=== PATIENT | male | born 1940 | race Caucasian/White ===

== ENCOUNTER → 2017-04-10 13:52 | Outpatient (CLI) | payer MEDICARE, OTHER ==
[2012-07-15 08:15] VITALS: BMI 27.3
== END | disposition home or self-care (01) ==
LOC: D.US 04-03 14:00
DX: I65.23 Occlusion and stenosis of bilateral carotid arteries (principal)

== ENCOUNTER 2017-10-28 18:20 | Emergency (ER) | payer MEDICARE, OTHER ==
[~2017-10-28] VITALS: Ht 177.8 cm; Wt 86.4 kg
[2017-10-28] MEDS ORDERED: BAYER CHEWABLE81 MG PO (19:08)
[2017-10-28] MEDS ORDERED: NAPROXEN250 MG PO (19:08)
== END 2017-10-28 23:24 | disposition home or self-care (01) ==
LOC: D.ER 18:20
DX: L76.32 Postprocedural hematoma of skin and subcutaneous tissue following other procedure (principal); E11.9 Type 2 diabetes mellitus without complications; I10 Essential (primary) hypertension; K21.9 Gastro-esophageal reflux disease without esophagitis; F17.200 Nicotine dependence, unspecified, uncomplicated

== ENCOUNTER → 2018-02-21 11:46 | Outpatient (CLI) | payer MEDICARE, OTHER ==
[2017-10-28 19:05] VITALS: BMI 27.3
[~2018-02-21 11:46] MED LIST: BAYER CHEWABLE81 MG PO; NAPROXEN250 MG PO
== END | disposition home or self-care (01) ==
LOC: D.CT 02-19 15:00
DX: I73.9 Peripheral vascular disease, unspecified (principal)

== ENCOUNTER → 2018-02-28 13:04 | Outpatient (CLI) | payer MEDICARE, OTHER ==
[2017-10-28 19:05] VITALS: BMI 27.3
== END | disposition home or self-care (01) ==
LOC: D.US 13:04
DX: I65.23 Occlusion and stenosis of bilateral carotid arteries (principal)

== ENCOUNTER → 2018-04-29 15:48 | Outpatient (CLI) | payer MEDICARE, OTHER ==
[2017-10-28 19:05] VITALS: BMI 27.3
== END | disposition home or self-care (01) ==
LOC: D.CT 15:48
DX: I65.23 Occlusion and stenosis of bilateral carotid arteries (principal)

== ENCOUNTER 2018-05-21 09:15 | Inpatient (IN) | payer MEDICARE, OTHER ==
[~2018-05-21] VITALS: Ht 177.8 cm; Wt 83.6 kg
[2018-05-21] MEDS ORDERED: LIPITOR20 MG PO (09:38)
[2018-05-21] MEDS ORDERED: ZYLOPRIM100 MG PO (09:38)
[2018-05-21] MEDS ORDERED: COREG CR20 MG PO (09:39)
[2018-05-21] MEDS ORDERED: BUPROPION HCL150 M1 PO (09:39)
[2018-05-21] MEDS ORDERED: CELEBREX200 MG PO (09:39)
[2018-05-21] MEDS ORDERED: LISINOPRIL40 MG PO (09:40)
[2018-05-21] MEDS ORDERED: PROTONIX40 MG PO (09:40)
[2018-05-21] MEDS ORDERED: SYNTHROID88 MCG PO (09:40)
[2018-05-21] MEDS ORDERED: CIALIS2.5 MG PO (09:40)
[2018-05-21] MEDS ORDERED: GLUCOPHAGE500 MG PO (09:40)
[2018-05-21] MEDS ORDERED: HYTRIN5 MG PO (09:41)
[2018-05-21] MEDS ORDERED: TRICOR145 MG PO (09:41)
[2018-05-21 11:16] LABS: BASOPHILS 1.2 % (0-2); EOSINOPHILS 3.8 % (0-7); HEMATOCRIT 39.2 % (42.0-54.0); HEMOGLOBIN 13.8 g/dL (13.5-17.5); IMMATURE GRANULOCYTES 0.2 % (0-5); MCH 32.5 pg (26.0-34.0); MCHC 35.2 g/dL (31.0-37.0); MCV 92.5 fL (80.0-100.0); MEAN PLATELET VOLUME 10.2 fL (7.4-10.4); MONOCYTES 7.2 % (2-11); NEUTROPHILS 51.6 % (40-80); PLATELET COUNT 233 10x3/uL (130-400); RBC 4.24 10x6/uL (4.20-6.10); RDW 13.2 % (11.5-14.5)
[2018-05-21 11:18] LABS: APPEARANCE CLEAR (CLEAR); BILIRUBIN NEGATIVE (NEGATIVE); COLOR YELLOW (YELLOW); GLUCOSE NEGATIVE (NEGATIVE); KETONE NEGATIVE (NEGATIVE); NITRITE NEGATIVE (NEGATIVE); PROTEIN 2+ mg/dL (NEGATIVE)
[2018-05-21 11:26] LABS: APTT 29.5 SECONDS (22.8-39.4); INR 1.03 (0.85-1.17)
[2018-05-21 11:31] LABS: ALBUMIN 3.6 g/dL (3.4-5.0); ANION GAP 14.5 mmol/L (8-16); BILIRUBIN - TOTAL 0.43 mg/dL (0.2-1.3); CALCIUM 9.1 mg/dL (8.5-10.1); CARBON DIOXIDE 26.6 mmol/L (21.0-32.0); CREATININE - SERUM 1.5 mg/dL (0.6-1.3); POTASSIUM - SERUM 4.1 mmol/L (3.5-5.1); PROTEIN - SERUM 7.5 g/dL (6.4-8.2)
[2018-05-23] VITALS (34 sets, daily range): BP systolic 99–158; BP diastolic 41–64; Ht 177.8 cm; Wt 83.6 kg
--- NOTE | 2018-05-23 16:15 | NUR ---
PT ARRIVED TO UNIT AROUND 1600. ON 12L OF O2 VIA SIMPLE MASK. OPENS EYES TO VOICE AND FOLLOWS SIMPLE COMMANDS. DRESSING NOTED ON RIGHT AND LEFT GROIN. NO HEMATOMA OR BRUISING NOTED AT SITE. RIGHT PEDAL PULSES PAPABLE. LEFT PEDAL PULSES ASSESSED WITH DOPPLER. HAS L-SUB CVL WITH PLASMOLYTE AT 150ML/HR PER ORDERS. RIGHT RADIAL JUHI SECURED WITH WRIST PROTECTOR. RUE WARM AND PINK. ECHEVERRIA IN PLACE WITH YELLOW URINE NOTED. SHIFT ASSESSMENT COMPLETED. WILL CONTINUE TO MONITOR.
--- NOTE | 2018-05-23 17:34 | NUR ---
SBP ELEVATED ABOVE 150. NITRO INITIATED AT 5ML/HR. DR. MORROW NOTIFIED OF CHANGE. WILL CONTINUE TO MONITOR.
--- NOTE | 2018-05-23 18:59 | NUR ---
PT RESTING COMFORTABLY. NITRO DRIP CURRENTLY INFUSING AT 7ML/HR. BP 115/49.
--- NOTE | 2018-05-23 20:14 | MORECARE ---
CASE MANAGEMENT DISCHARGE SUMMARY PATIENT: GLENDA NIELSEN UNIT: [id number] ADM DATE: 05/23/18 AGE: 77 : 42 SEX: M ROOM/BED: D.[facility] AUTHOR: PATRICK,DOC PHYSICIAN: REFERRING PHYSICIAN: HILDA MORROW MD DATE OF SERVICE: 05/23/18 Discharge Plan Patient Name: GLENDA NIELSEN Facility: [facility]:[place] : 1940 Planned Disposition: Home Anticipated Discharge Date: Discharge Date: Expected LOS: Initial Reviewer: [email or web address] Initial Review Date: 05/23/2018 Generated: 05/23/18 9:14 pm Comments DCP- Discharge Planning Updated by [email or web address]: Linda Neri on 05/23/18 7:[address] Patient Name: GLENDA NIELSEN Admission Status: Elective Accout number: [id number] Admission Date: 05-23-2018 : 1940 Admission Diagnosis: Attending: HILDA MORROW Current LOS: 1 Anticipated DC Date: Planned Disposition: Home Primary Insurance: MEDICARE A & B Discharge Planning Comments: CM met with patient at bedside after obtaining verbal consent. Patient states he plans on returning home after discharge with his . Patient states he will have family transport him home via private vehicle. Patient denies any discharge needs at this time. CM will continue to follow and assist as needed for discharge planning / needs. In Store Marketing Associate: Linda Neri DCPIA - Discharge Planning Initial Assessment Updated by [email or web address]: Linda Neri on 05/23/18 8:09 pm * Is the patient Alert and Oriented? Yes * How many steps to enter\exit or inside your home? * PCP PARROT * Pharmacy [facility] * Preadmission Environment Home with Family * ADLs Independent * Equipment None * List name and contact numbers for known caregivers / representatives who currently or will assist patient after discharge: HUMA NIELSEN - SPOUSE - [phone] * Verbal permission to speak to the caregivers and representatives has been obtained from the patient. N/A * Community resources currently utilized None * Additional services required to return to the preadmission environment? No * Can the patient safely return to the preadmission environment? Yes * Has this patient been hospitalized within the prior 30 days at any hospital? No Patient Name: GLENDA NIELSEN Page [id number] at 2013 All edits/amendments must be made on the electronic document DICTATION DATE: 05/23/182013 ELECTRICAL ACCESSORIES ASSEMBLER: YOSI 05/23/182013 RPT#: [id number] DC DATE: STATUS: ADM IN [facility] [address] [place] [address] END OF REPORT
--- NOTE | 2018-05-23 21:00 | NUR ---
1900 REPORT RECEIVED CARE ASSUMED. ASSESSMENT DONE SEE FLOW SHEET. VSS. NO SIGNS OF ACUTE DISTRESS NOTED WILL CONTINUE TO MONITOR. ICU MONITORS IN PLACE ALARMS SET AND VERIFIED. IS 1500. 2100 MEDS GIVEN PER MAR. NO DIFFICULTY SWALLOWING NOTED. COMPLETE BED BATH PROVIDED. LINEN CHANGE. ECHEVERRIA CARE. IS 1500. SCD APPLIED.
--- NOTE | 2018-05-23 23:00 | NUR ---
REASSESSMENT DONE SEE FLOW SHEET. VSS. WILL CONTINUE TO MONITOR.
[2018-05-24] VITALS (27 sets, daily range): BP systolic 95–162; BP diastolic 39–74
--- NOTE | 2018-05-24 03:00 | NUR ---
0100 WATER PROVIDED PER PT REQUEST. VSS. NO SIGNS OF ACUTE DISTRESS NOTED. 0300 REASSESSMENT DONE SEE FLOW SHEET. VSS. NO SINGS OF ACUTE DISTRESS NOTED. IS 1500.
--- NOTE | 2018-05-24 05:00 | NUR ---
DANGLED AND OOB TO CHAIR VSS. NO SIGNS OF ACUTE DISTRESS NOTED.
[2018-05-24 06:03] LABS: HEMOGLOBIN 10.8 g/dL (13.5-17.5); MCHC 34.8 g/dL (31.0-37.0); MEAN PLATELET VOLUME 10.7 fL (7.4-10.4); RBC 3.37 10x6/uL (4.20-6.10); RDW 13.1 % (11.5-14.5); WBC 7.7 10x3/uL (4.8-10.8)
[2018-05-24 06:32] LABS: ANION GAP 15.1 mmol/L (8-16); CARBON DIOXIDE 23.9 mmol/L (21.0-32.0); CREATININE - SERUM 1.5 mg/dL (0.6-1.3)
--- NOTE | 2018-05-24 07:00 | NUR ---
REC'D CARE OF PT. A&O X3. SITTING IN CHAIR. DENIES PAIN.
--- NOTE | 2018-05-24 07:47 | NUR ---
BREAKFAST TRAY SERVED.
--- NOTE | 2018-05-24 08:06 | NUR ---
INITIAL ASSESSMENT COMPLETED PER FLOW SHEET.
--- NOTE | 2018-05-24 09:00 | NUR ---
FAMILY AT BEDSIDE. UPDATED.
--- NOTE | 2018-05-24 10:19 | NUR ---
PULLS 1500 ON IS X6.
--- NOTE | 2018-05-24 11:12 | NUR ---
ECHEVERRIA CATH DC'D FROM BLADDER. RIGHT RADIAL JUHI DC'D WITH TIP INTACT. NO BLEEDING. NO HEMATOMA. IVF AND MORPHINE DC'D.
--- NOTE | 2018-05-24 11:30 | NUR ---
REASSESSMENT COMPLETED PER FLOW SHEET. NO ACUTE CHANGES.
--- NOTE | 2018-05-24 11:33 | NUR ---
AMBULATED 200 FEET AND BACK TO BED.
--- NOTE | 2018-05-24 12:29 | OP ---
PATIENT NAME: GLENDA NIELSEN MEDICAL RECORD: [id number] :44 LOCATION:[facility] ADMISSION DATE:05/23/18 SURGEON: KENNETH MORROW MD DATE OF OPERATION: 05/23/2018 SURGEON: Kenneth Morrow MD SCENIC ARTIST: Love. ANESTHESIA: General endotracheal, Dr. Guevara and Dr. Leyva. OPERATION PERFORMED: 1. Endovascular stent repair of aortoiliac disease. 2. Left femoral artery exposure, 16313. 3. Right percutaneous closure device right common femoral artery, 23746. 4. Endovascular stent repair and deployment of an aortoiliac endograft, 13652. PREOPERATIVE DIAGNOSIS: Severe aortoiliac disease. POSTOPERATIVE DIAGNOSIS: Severe aortoiliac disease. INDICATION FOR OPERATION: Severe aortoiliac disease with claudication. FINDINGS OF THE OPERATION: Fluoro time was 10 minutes. Contrast was 40 cc. Aortogram post-procedure demonstrates good expansion of the distal aorta and iliacs with no endoleaks, bilateral femoral arteriograms demonstrated severe disease at the aortoiliac junction. DESCRIPTION OF PROCEDURE: After informed consent, adequate preoperative medication evaluation, the patient was brought to the operating room, placed on the table in the supine position. After induction of general endotracheal anesthesia and application of appropriate monitoring devices, the chest, abdomen and legs were prepped and draped in sterile field, utilizing Betadine scrub, alcohol, and Betadine solution. A Betadine-impregnated drape was also used. Dr. Aleman participated throughout the procedure and assisted with opening and dissection of the vessels as well as wires, catheters, and sheaths manipulations in the iliacs and aorta. He also participated in closure of the left distal iliac artery. The patient underwent ultrasound guidance and placement of a 5-Sudanese sheath in the right groin. Attention was then turned toward the left and Dr. Aleman and myself dissected the common femoral and distal iliac arteries. Bilateral 7 sheaths were placed and wires were manipulated through the severe stenotic areas, both right proximal iliac and left proximal iliac. Bilateral retrograde arteriograms were performed delineating the disease. Bilateral 7-Sudanese x 40 cm balloons were placed and the iliac and aorta vessels dilated. We were therefore able to place the stent device through the left side after placement of a 19-Sudanese sheath. The contralateral wire was snared from the right and brought through the sheath. The main body was then advanced into the aorta and the limbs sat on the bifurcation. The main body was deployed followed by the contralateral side. A pigtail catheter was placed in the aorta and the left ipsilateral limb was deployed. Bilateral balloons were then placed over wires and the iliac limbs and aortic limb dilated. An aortogram was then performed demonstrated good flow through the distal aorta and bilateral iliac stents with OPERATIVE REPORT [id number] GLENDA NIELSEN no residual stenosis. The left external iliac artery was repaired and interrupted sutured. The patient was given a calculated dose of protamine. An 8-Sudanese Angio-Seal was then deployed in the right groin with good hemostasis. The patient was given a calculated dose of protamine to reverse the heparin. Hemostasis was assured. The left wound was irrigated with copious amounts of antibiotic solution and normal saline. Instrument count and sponge counts were correct times 2. The wound was closed in layers utilizing 2-0 Vicryl, 3-0 Vicryl, and 5-0 subcuticular Monocryl. Sterile dressings were applied. The patient tolerated the procedure well and was transferred to the CV ICU in satisfactory condition. TRANSINT:[id number] Voice Confirmation ID: [id number] DOCUMENT ID: [id number] KENNETH MORROW MD at 1229 CC: [id number] DICTATION DATE: 05/23/18 1536 CHAINSTITCH FELLED SEAM OPERATOR: 05/23/18 1643 ADM IN [facility] [id number] [place] [address]
--- NOTE | 2018-05-24 13:32 | NUR ---
REMAINS UP IN CHAIR. DENIES NEEDS. VSS.
--- NOTE | 2018-05-24 13:58 | NUR ---
PULLS 1500 ON IS.
--- NOTE | 2018-05-24 14:41 | NUR ---
AMBULATE 250 FEET AND BACK TO CHAIR ON RA WITHOUT DIFFICULTY WITH ROSIE PT
--- NOTE | 2018-05-24 14:59 | NUR ---
REASSESSMENT COMPLETED PER FLOW SHEET. NO ACUTE CHANGES.
--- NOTE | 2018-05-24 16:07 | NUR ---
BACK TO BED FROM CHAIR.
--- NOTE | 2018-05-24 16:29 | NUR ---
5697-9116 BP CUFF WAS ON BUT DID NOT TAKE BP.
--- NOTE | 2018-05-24 17:54 | NUR ---
RESTING WITH EYES CLOSED. VSS.
--- NOTE | 2018-05-24 20:29 | NUR ---
1900 REPORT RECEIVED CARE ASSUMED. ASSESSMENT DONE SEE FLOW SHEET. VSS. NO SIGNS OF ACUTE DISTRESS NOTED. WILL CONITNUE TO MONITOR. 2028 MEDS GIVEN PER JUN. VSS. WILL CONINTUE TO MONITOR.
--- NOTE | 2018-05-24 23:00 | NUR ---
REASSESSMENT DONE SEE FLOW SHEET. VSS. PT VERBALIZES NO COMPLAINTS.
[2018-05-25] VITALS (13 sets, daily range): BP systolic 108–167; BP diastolic 53–67
--- NOTE | 2018-05-25 02:59 | NUR ---
0100 WATER PROVIDED PER REQUEST. NO SIGNS OF ACUTE DISTRESS NOTED WILL CONTINUE TO MONITOR. 0295 REASSESSMENT DONE SEE FLOW VSS. WILL CONTINUE TO MONITOR.
--- NOTE | 2018-05-25 05:00 | NUR ---
PT UP TO CHAIR. NO DIFFICULTY NOTED. VERBALIZES NO COMPLAINTS. VSS.
--- NOTE | 2018-05-25 07:00 | NUR ---
AMBULATING INDEPENDENTLY TO BATHROOM. NO SHORTNESS OF BREATH DENIES PAIN. SKIN WARM AND DRY. LEFT SUBCLAVIAN CATH DRESSING DRY AND INTACT. LEFT GROIN DRESSING DRY AND INTACT. RIGHT GROIN WITHOUT REDNESS OR SWELLING.
--- NOTE | 2018-05-25 08:00 | NUR ---
BREAKFAST SERVED ATE POORLY. NO DISTRESS
--- NOTE | 2018-05-25 09:30 | NUR ---
AMBULATING TO BATHROOM INDEPENDENTLY. NO DISTRESS. DENIES PAIN. HERE UPDATE GIVEN. PATEINT READY TO GO HOME
--- NOTE | 2018-05-25 11:30 | NUR ---
LUNCH TRAY SERVED. ATE POORLY. DENIES PAIN. AMBULATING IN ROOM INDEPENDENTLY
--- NOTE | 2018-05-25 12:00 | NUR ---
NTG STARTED FOR BLOOD PRESSURE.
[2018-05-25] MEDS ORDERED: PLAVIX75 MG PO (12:14)
--- NOTE | 2018-05-25 12:30 | NUR ---
DR. MORROW HERE. TURNED NTG GTT OFF. PATIENT BEING DISCHARGED HOME.
--- NOTE | 2018-05-25 13:15 | NUR ---
PATIENT DISCHARGED HOME WITH . DENIES ANY DISTRESS, OR PAIN
--- NOTE | 2018-05-26 14:38 | MORECARE ---
CASE MANAGEMENT DISCHARGE SUMMARY PATIENT: GLENDA NIELSEN UNIT: [id number] ADM DATE: 05/23/18 AGE: 77 : 44 SEX: M ROOM/BED: D[facility] AUTHOR: PATRICK,DOC PHYSICIAN: REFERRING PHYSICIAN: HILDA MORROW MD DATE OF SERVICE: 05/26/18 Discharge Plan Patient Name: GLENDA NIELSEN Facility: [facility]:[place] : 1940 Planned Disposition: Home Anticipated Discharge Date: Discharge Date: 05/25/2018 Expected LOS: Initial Reviewer: [email or web address] Initial Review Date: 05/23/2018 Generated: 05/26/18 3:38 pm Comments DCP- Discharge Planning Updated by [email or web address]: Linda Neri on 05/23/18 7:[address] Patient Name: GLENDA NIELSEN Admission Status: Elective Accout number: [id number] Admission Date: 05-23-2018 : 1940 Admission Diagnosis: Attending: HILDA MORROW Current LOS: 1 Anticipated DC Date: Planned Disposition: Home Primary Insurance: MEDICARE A & B Discharge Planning Comments: CM met with patient at bedside after obtaining verbal consent. Patient states he plans on returning home after discharge with his . Patient states he will have family transport him home via private vehicle. Patient denies any discharge needs at this time. CM will continue to follow and assist as needed for discharge planning / needs. Warehouse Order Picker: Linda Neri DCPIA - Discharge Planning Initial Assessment Updated by [email or web address]: Linda Neri on 05/23/18 8:09 pm * Is the patient Alert and Oriented? Yes * How many steps to enter\exit or inside your home? * PCP PARROT * Pharmacy [facility] * Preadmission Environment Home with Family * ADLs Independent * Equipment None * List name and contact numbers for known caregivers / representatives who currently or will assist patient after discharge: September - SPOUSE - [phone] * Verbal permission to speak to the caregivers and representatives has been obtained from the patient. N/A * Community resources currently utilized None * Additional services required to return to the preadmission environment? No * Can the patient safely return to the preadmission environment? Yes * Has this patient been hospitalized within the prior 30 days at any hospital? No Last DP export: 05/23/18 7:14 pm Patient Name: GLENDA NIELSEN Page [id number] at 1438 All edits/amendments must be made on the electronic document DICTATION DATE: 05/26/181437 BUTADIENE CONVERTOR OPERATOR: YOSI 05/26/181437 RPT#: [id number] DC DATE:05/25/18 STATUS: DIS IN [facility] [address] [place] [address] END OF REPORT
== END 2018-05-25 13:42 | disposition home or self-care (01) | DRG 254 ==
LOC: D.SDCHOLD 05-23 07:50 → D.CVICU 05-23 12:58
PROVIDERS: ADMIT Internal Medicine Cardiovascular Disease
PROC: 04703DZ Dilation of Abdominal Aorta with Intraluminal Device, Percutaneous Approach (ICD-10-PCS; principal; 2018-05-23 11:45)
DX: I70.212 Atherosclerosis of native arteries of extremities with intermittent claudication, left leg (principal); I10 Essential (primary) hypertension; E78.5 Hyperlipidemia, unspecified; E03.9 Hypothyroidism, unspecified; E11.9 Type 2 diabetes mellitus without complications; I65.23 Occlusion and stenosis of bilateral carotid arteries; I70.0 Atherosclerosis of aorta

== ENCOUNTER 2019-01-19 10:01 | Inpatient (IN) | payer MEDICARE, OTHER ==
[~2019-01-19] VITALS: Ht 177.8 cm; Wt 88.7 kg
[~2019-01-19 10:01] MED LIST changes: +BUPROPION HCL150 M1 PO; +CELEBREX200 MG PO; +CIALIS2.5 MG PO; +COREG CR20 MG PO; +GLUCOPHAGE500 MG PO; +HYTRIN10 MG PO; +LIPITOR20 MG PO; +LISINOPRIL40 MG PO; +PLAVIX75 MG PO; +PROTONIX40 MG PO; +SYNTHROID88 MCG PO; +TRICOR145 MG PO; +ZYLOPRIM100 MG PO
[2019-01-19] MEDS ORDERED: NORVASC5 MG PO (10:23)
[2019-01-19] MEDS ORDERED: HCTZ25 MG PO (10:24)
[2019-01-19] MEDS ORDERED: FLUTICASONE PRO16 GM NASAL (10:25)
[2019-01-19 11:37] LABS: HEMATOCRIT 33.4 % (42.0-54.0); MCH 31.2 pg (26.0-34.0); MCHC 32.9 g/dL (31.0-37.0); MCV 94.6 fL (80.0-100.0); MEAN PLATELET VOLUME 10.5 fL (7.4-10.4); RBC 3.53 10x6/uL (4.20-6.10); RDW 13.9 % (11.5-14.5); WBC 5.3 10x3/uL (4.8-10.8)
[2019-01-19 11:46] LABS: APPEARANCE CLEAR (CLEAR); BILIRUBIN NEGATIVE (NEGATIVE); COLOR STRAW (YELLOW); GLUCOSE NEGATIVE (NEGATIVE); KETONE NEGATIVE (NEGATIVE); NITRITE NEGATIVE (NEGATIVE); PROTEIN 2+ mg/dL (NEGATIVE); UROBILINOGEN NORMAL (NORMAL)
[2019-01-19 11:47] LABS: BACTERIA NONE SEEN /hpf (NEGATIVE); EPITHELIAL CELLS NSEEN /hpf (0-5); RED CELLS - URINE 0-5 /hpf (0-5); WHITE CELLS - URINE 0-5 /hpf (NEGATIVE)
[2019-01-19 11:50] LABS: APTT 29.3 SECONDS (22.8-39.4); INR 1.03 (0.85-1.17)
[2019-01-19 11:57] LABS: ALBUMIN 3.2 g/dL (3.4-5.0); ANION GAP 11.3 mmol/L (8-16); BILIRUBIN - TOTAL 0.29 mg/dL (0.2-1.3); CALCIUM 8.6 mg/dL (8.5-10.1); CARBON DIOXIDE 28.8 mmol/L (21.0-32.0); CREATININE - SERUM 1.6 mg/dL (0.6-1.3); POTASSIUM - SERUM 4.1 mmol/L (3.5-5.1); PROTEIN - SERUM 6.2 g/dL (6.4-8.2)
[2019-01-21] VITALS (47 sets, daily range): BP systolic 91–180; BP diastolic 22–73; BMI 26.6; BMI 27.4
--- NOTE | 2019-01-21 12:13 | NUR ---
1014 PT ARRIVED TO ROOM L SUBCLAVIAN CVL DRESSING CDI, R RADIAL A LINE POOR WAVEFORM REPOSITIONED WITHOUT SUCCESS, DR MORROW AWARE AND TO TITRATE PER BP CUFF AND LEAVE A LINE AT THIS TIME, R CEA INCISION DRESSING CDI WITH GENNARO DRAIN COMPRESSED, NO NEURO DEFECITS, WILL COTNINUE TO MONITOR 1215 CONFIRMED OK TO HOLD BP MEDS WITH EDISON DUNCAN NURSE
--- NOTE | 2019-01-21 16:45 | NUR ---
1230 PT ATE PUDDING FOR LUNCH 1300,1500 REPOSITIONED 1500 CALLED FOR UPDATE 1630 REPOSITIONED AND DINNER TRAY PROVIDED, NO CHANGES IN NEURO STATUS
--- NOTE | 2019-01-21 17:44 | MORECARE ---
CASE MANAGEMENT DISCHARGE SUMMARY PATIENT: GLENDA NIELSEN UNIT: [id number] ADM DATE: 01/21/19 AGE: 78 : 42 SEX: M ROOM/BED: D.[facility] AUTHOR: PATRICK,DOC PHYSICIAN: REFERRING PHYSICIAN: HILDA MORROW MD DATE OF SERVICE: 01/21/19 Discharge Plan Patient Name: GLENDA NIELSEN Facility: [facility]:[place] : 1940 Planned Disposition: Home Anticipated Discharge Date: Discharge Date: Expected LOS: Initial Reviewer: [email or web address] Initial Review Date: 01/21/2019 Generated: 01/21/19 6:44 pm Comments DCP- Discharge Planning Updated by [email or web address]: Linda Neri on 01/21/19 4:[address] Patient Name: GLENDA NIELSEN Admission Status: Elective Accout number: [id number] Admission Date: 01-21-2019 : 1940 Admission Diagnosis: Attending: HILDA MORROW Current LOS: 1 Anticipated DC Date: Planned Disposition: Home Primary Insurance: MEDICARE A & B Discharge Planning Comments: CM met with patient at bedside after explaining CM role and obtaining verbal consent. Patient lives at home with his SEPTEMBER where he is independent with his care and plans to return there upon discharge. Patient feels this would be a safe discharge. CM discussed availability / needs of home health and medical equipment. Patient denies any discharge needs at this time. Patient states he will have his family drive him home upon discharge. CM will continue to follow and assist as needed with discharge planning / needs. Naphtha Washing System Operator: Linda Neri DCPIA - Discharge Planning Initial Assessment Updated by [email or web address]: Linda Neri on 01/21/19 5:38 pm * Is the patient Alert and Oriented? Yes * How many steps to enter\exit or inside your home? * PCP PARROT * Pharmacy [facility] * Preadmission Environment Home with Family * ADLs Independent * Equipment Cane * Other Equipment CANE , WALKER * List name and contact numbers for known caregivers / representatives who currently or will assist patient after discharge: SEPTEMBER BACK - [phone] * Verbal permission to speak to the caregivers and representatives has been obtained from the patient. No * Community resources currently utilized None * Additional services required to return to the preadmission environment? No * Can the patient safely return to the preadmission environment? Yes * Has this patient been hospitalized within the prior 30 days at any hospital? No Patient Name: GLENDA NIELSEN Page 76288 at 1744 All edits/amendments must be made on the electronic document DICTATION DATE: 01/21/191743 TIRE WORKER: YOSI 01/21/191743 RPT#: [id number] DC DATE: STATUS: ADM IN [facility] [address] [place] [address] END OF REPORT
--- NOTE | 2019-01-21 18:03 | NUR ---
[address] MORROW ABOUT BP TRENDING UP, OKAYED TO GIVE PREVIOUSLY HELD MEDICATIONS NOW 1800 ECHEVERRIA CATH REMOVED PER PROTOCOL TIP INTACT, URINAL PROVIDED
--- NOTE | 2019-01-21 19:00 | NUR ---
SHIFT ASSESSMENT COMPLETE. PT IS SITITNG UP IN BED WITH GLASSES ON, HE IS IN GOOD SPIRITS. A&O X4 WITH NO COMPLAINTS OF PAIN OR DISCOMFORT. PERRLA, 3 MM, BRISK REACTION TO LIGHT. RR EVEN AND UNLABORED. R CEA DRESSING CDI, NO DRAINAGE NOTED. R CHEST/NECK GENNARO DRAIN, COMPRESSED, BLOODY DRAINAGE NOTED, DRESSING CDI. S1S2 AUDIBLE, HR 78 NSR SHOWING ON MONITOR. CLEAR BREATH SOUNDS HEARD BILAT THROUGHOUT ALL LOBES. L SUBCLAVIAN CVL INFUSING ZINACEF @ 11.4 ML/HR AND PLASMALYTE @ 30 ML/HR. R RADIAL A-LINE DRESSING CDI, NO BLEEDING NOTED. ABD SOFT, NON TENDER TO TOUCH, BS ACTIVE X4. SCDS ON AND FUNCTIONING. RADIAL AND PEDAL PULSES PALP. HAND RECEPTIONIST AND FOOD PUMPS STRONG AND EQUAL. V/S: HR 78, BP 118/61, RR 17, CVP 9, O2 SAT 96%. HE DENIES ANY NEEDS AT THIS TIME. CALL LIGHT IN REACH, BED IN LOWEST POSITION. WILL CONT WITH POC.
--- NOTE | 2019-01-21 19:20 | NUR ---
IS USE X10, 1653-6438 ML INSPIRIED, GOOD EFFORT. REFRESHMENTS BROUGHT TO BEDSIDE. WILL CONT WITH POC.
--- NOTE | 2019-01-21 21:32 | NUR ---
PT'S BP ELEVATED. PAGING DR. MORROW.
--- NOTE | 2019-01-21 21:35 | NUR ---
NITRO GTT INITATED AT 5 ML/HR. WILL TITRATE UP Q3MIN BY 5 MCG PER ORDERS.
--- NOTE | 2019-01-21 23:00 | NUR ---
REASSESSMENT COMPLETE. PT IS A&O X4, HE DENIES ANY PAIN. NO S/S OF SWELLING/STRIOR DEVELOPMENT NOTED. R CEA DRESSING CDI, GENNARO DRAIN COMPRESSED, BLOODY DRAINAGE NOTED. IS USE X6, GOOD EFFORT, 0296-1265 INSPIRIED. 2L PLACED ON PT D/T O2 SAT (88%) DECLINE WHEN SLEEPING. NO FURTHER NEEDS AT THIS TIME. CALL LIGHT IN REACH, BED IN LOWEST POSITION. WILL CONT WITH POC.
--- NOTE | 2019-01-21 23:55 | NUR ---
ASSISTED WITH URINAL USE, 25 ML YELLOW URINE COLLECTED. REPOSITIONED FOR COMFORT. NO FURTHER NEEDS. WILL CONT WITH POC.
[2019-01-22] VITALS (104 sets, daily range): BP systolic 94–153; BP diastolic 39–92; Ht 177.8 cm; Wt 88.7 kg
--- NOTE | 2019-01-22 01:00 | NUR ---
HAND COOKING SHOW HOST AND FOOT PUMPS EQUAL AND STRONG. A&O X4 WITH NO COMPLAINTS OF PAIN OR DISCOMFORT, REPOSITIONED ON L SIDE. HE DENIES ANY NEEDS. BP WNL. WILL CONT TO TITRATE GTT TOLERATED.
--- NOTE | 2019-01-22 03:00 | NUR ---
REASSESSMENT COMPLETE. MOVED PT UP IN BED X2 ASSIST, HE DENIES ANY PAIN OR DISCOMFORT. VSS. REFRESHMENTS PROVIDED. IS USE X10, 1250 ML INSPIRED, GOOD EFFORT. NO FURTHER CHANGES AT THIS TIME. CALL LIGHT IN REACH, BED IN LOWEST POSITION. WILL CONT WITH POC.
--- NOTE | 2019-01-22 04:00 | NUR ---
CHG BED BATH AND LINEN CHANGE PROVIDED. PT TOLERATED WELL. REFRESHMENTS BROUGHT TO BEDSIDE.
--- NOTE | 2019-01-22 05:00 | NUR ---
MARY ELLEN IN AT BEDSIDE, GENNARO DRAIN D/C. 25 ML SEROSANG FLUID COLLECTED. PT TOLERATED WELL.
--- NOTE | 2019-01-22 05:15 | NUR ---
PT VOIDED 75 ML TOTAL FOR SHIFT. BLADDER SCAN READING. 567 ML. PT ATTEMPTING TO VOID.
--- NOTE | 2019-01-22 07:00 | NUR ---
RECEIVCED BEDSIDE REPORT ON PATIENT AND ASSUMED CARE. PATIENT ALERT AND ORIENTED X 4, NO COMPLAINTS OF PAIN. VSS. LEFT SUBCLAVIAN CVL IN PLACE, ZINACEF INFUSING AT 11.4 CC/HR, PLASOMLYTE AT 30 CC/HR AND NTG AT 16 MCG/MIN. HEAD TO TOE ASSESSMENT COMPLETED. HR - 78 NSR, BBS - CLEAR AND EQUAL. ON O2 VIA NC AT 2 LPM WITH SPO2 - 98%.
--- NOTE | 2019-01-22 07:10 | NUR ---
PT VOID 125 ML, CONCENTRATED URINE. WILL NOTIFY AM NURSE.
--- NOTE | 2019-01-22 07:30 | NUR ---
PATIENT GIVEN BREAKFAST TRAY AND REPOSITIONED IN BED.
--- NOTE | 2019-01-22 07:53 | NUR ---
PATIENT NAUSEATED WITH BREAKFAST, HR - 115, BP - 153/62, GIVEN 4 MG ZOFRAN IVP WITH NS FLUSH.
--- NOTE | 2019-01-22 09:02 | NUR ---
PATIENT RESTING QUIETLY, VSS. GIVEN MEDS PER EMAR.
--- NOTE | 2019-01-22 09:22 | NUR ---
PATIENTS AT BEDSIDE, UPDATED AND QUESTIONS ANSWERED.
--- NOTE | 2019-01-22 09:45 | NUR ---
DR. MORROW AT ROOM UPDATED AND EXAMINES PATIENT.
--- NOTE | 2019-01-22 10:22 | NUR ---
PATIENT ON RA AT 96% SPO2.
--- NOTE | 2019-01-22 10:59 | NUR ---
REASSESSMENT COMPLETE. PATIENT SITTING UP IN BEDSIDE CHAIR. VSS.
--- NOTE | 2019-01-22 11:40 | NUR ---
PATIENT GIVEN LUNCH TRAY. VSS. WEANING NTG GTT.
--- NOTE | 2019-01-22 13:34 | NUR ---
PATIENT UP WALKING WITH PT.
--- NOTE | 2019-01-22 13:35 | NUR ---
PATIENT WALKED 230 FT IN HALLWAY WITH PT.
--- NOTE | 2019-01-22 15:00 | NUR ---
REASSESSMENT COMPLETE. BP 138/57, NTG GTT RESTARTED AT 5 MCG/MIN. VSS.
--- NOTE | 2019-01-22 16:16 | NUR ---
PATIENTS AT BEDSIDE VISITING WITH PATIENT. VSS.
--- NOTE | 2019-01-22 16:32 | NUR ---
PATIENT GIVEN DINNER TRAY.
--- NOTE | 2019-01-22 16:46 | NUR ---
PATIENT ATE APPROXIMATELY 80% OF DINNER TRAY. VSS.
--- NOTE | 2019-01-22 18:32 | NUR ---
PATIENT LINENS CHANGED AND PATIENT BACK TO BED. VSS.
--- NOTE | 2019-01-22 19:15 | NUR ---
Received patient resting in bed with eyes open, assessment completed per flowsheet. Patient AO x4, calm and answers appropriately. R anterior neck incision dressing CDI, no difficulty breathing/swallowing noted. S1/S2 noted NSR on telemetry, rythmic and regular. Breathing is even/unlabored on room air with O2 sat 96%, lung sounds clear throughout. Abdomen is round/soft with bowel sounds active x4, non-tender. Patient utilizes urinal jug, 125ml clear yellow urine. All pulses palpable with cap refill < 3 sec, skin warm/dry and full ROM all extremities. Denies pain or other needs at this time, see flowsheet for details. All VSS and will continue to monitor.
--- NOTE | 2019-01-22 21:00 | NUR ---
Patient resting in bed with eyes closed, no s/s of distress at this time. HS meds given as ordered, no difficulties breathing/swallowing observed. Patient denies pain or other needs at this time, all VSS and will continue to monitor.
--- NOTE | 2019-01-22 22:55 | NUR ---
Reassessment completed per flowsheet, no changes noted from previous assessment. S1/S2 noted NSR on telemetry, rythmic and regular. Breathing is even/unlabored on room air with O2 sat 94%, lung sounds clear throughout. R anterior neck incision dressing CDI, no difficulty breathing/swallowing noted. All pulses palpable with cap refill < 3 sec, skin warm/dry. Denies pain or other needs at this time, see flowsheet for details. All VSS and will continue to monitor.
[2019-01-23] VITALS (40 sets, daily range): BP systolic 94–171; BP diastolic 42–76
--- NOTE | 2019-01-23 01:00 | NUR ---
Patient resting in bed with eyes closed, no s/s of distress at this time. Denies pain or other needs at this time, all VSS and will continue to monitor.
--- NOTE | 2019-01-23 02:55 | NUR ---
Reassessment completed per flowsheet, no changes noted from previous assessment. R anterior neck incision dressing CDI, no difficulty breathing/swallowing noted. S1/S2 noted NSR on telemetry, rythmic and regular. Breathing is even/unlabored on room air with O2 sat 93%, lung sounds clear throughout. All pulses palpable with cap refill < 3 sec, skin warm/dry. Denies pain or other needs at this time, see flowsheet for details. All VSS and will continue to monitor.
--- NOTE | 2019-01-23 07:00 | NUR ---
RECEIVED BEDSIDE REPORT ON PATIENT AND ASSUMED CARE. PATIENT UP IN BEDSIDE CHAIR, ALERT AND ORIENTED. NTG INFUSING AT 10 MCG/MIN FOR BP. CM - 82, SR. BBS - CLEAR AND EQUAL, ON RA SPO2% - 94%. HEAD TO TOE ASSESSMENT COMPLETED.
--- NOTE | 2019-01-23 08:00 | NUR ---
PATIENT GIVEN MORNING MEDS PER EMAR. EATING BREAKFAST.
--- NOTE | 2019-01-23 09:09 | NUR ---
PATIENT UP WALKING WITH PT IN HALLWAY. TOLERATES WELL. VSS.
--- NOTE | 2019-01-23 11:02 | NUR ---
REASSESSMENT COMPLETE. VSS. AT BEDSIDE.
--- NOTE | 2019-01-23 13:52 | NUR ---
PATIENT DISCHARGED TO HOME, ACCOMPANIED BY . VSS. TO VEHICLE BY WHEELCHAIR. PATIENT GIVEN DISCHARGE INSTRUCTIONS AND VERBALIZED UNDERSTANDING. HAS APPOINTMENT WITH DR. MORROW ON 02/19/19 AT 1100.
--- NOTE | 2019-01-23 14:43 | MORECARE ---
CASE MANAGEMENT DISCHARGE SUMMARY PATIENT: GLENDA NIELSEN UNIT: [id number] ADM DATE: 01/21/19 AGE: 78 : 44 SEX: M ROOM/BED: D[facility] AUTHOR: PATRICK,DOC PHYSICIAN: REFERRING PHYSICIAN: HILDA MORROW MD DATE OF SERVICE: 01/23/19 Discharge Plan Patient Name: GLENDA NIELSEN Facility: [facility]:[place] : 1940 Planned Disposition: Home Anticipated Discharge Date: Discharge Date: 01/23/2019 Expected LOS: Initial Reviewer: [email or web address] Initial Review Date: 01/21/2019 Generated: 01/23/19 3:42 pm DCP- Discharge Planning Updated by [email or web address]: Linda Neri on 01/21/19 4:[address] Patient Name: GLENDA NIELSEN Admission Status: Elective Accout number: [id number] Admission Date: 01-21-2019 : 1940 Admission Diagnosis: Attending: HILDA MORROW Current LOS: 1 Anticipated DC Date: Planned Disposition: Home Primary Insurance: MEDICARE A & B Discharge Planning Comments: CM met with patient at bedside after explaining CM role and obtaining verbal consent. Patient lives at home with his SEPTEMBER where he is independent with his care and plans to return there upon discharge. Patient feels this would be a safe discharge. CM discussed availability / needs of home health and medical equipment. Patient denies any discharge needs at this time. Patient states he will have his family drive him home upon discharge. CM will continue to follow and assist as needed with discharge planning / needs. Rack Worker: Linda Neri DCPIA - Discharge Planning Initial Assessment Updated by : Linda Neri on 01/21/19 5:38 pm * Is the patient Alert and Oriented? Yes * How many steps to enter\exit or inside your home? * PCP [facility] * Pharmacy [facility] * Preadmission Environment Home with Family * ADLs Independent * Equipment Cane * Other Equipment CANE , WALKER * List name and contact numbers for known caregivers / representatives who currently or will assist patient after discharge: HUMA BACK - -[phone] * Verbal permission to speak to the caregivers and representatives has been obtained from the patient. No * Community resources currently utilized None * Additional services required to return to the preadmission environment? No * Can the patient safely return to the preadmission environment? Yes * Has this patient been hospitalized within the prior 30 days at any hospital? No Last DP export: 01/21/19 4:44 p Patient Name: GLENDA NIELSEN Page [id number] at 1443 All edits/amendments must be made on the electronic document DICTATION DATE: 01/23/191441 BLOOMING MILL SUPERVISOR: YOSI 01/23/191441 RPT#: [id number] DC DATE:01/23/19 STATUS: DIS IN [facility] [address] [place] [address] END OF REPORT
--- NOTE | 2019-01-24 10:45 | OP ---
PATIENT NAME: GLENDA NIELSEN MEDICAL RECORD: [id number] :[birth year] LOCATION:[facility] D.CV01 ADMISSION DATE:01/21/19 SURGEON: HILDA MORROW MD DATE OF OPERATION: 01/21/2019 SURGEON: Hilda Morrow MD ANESTHESIA: General, Dr. Guevara. OPERATION PERFORMED: Right carotid endarterectomy with patch angioplasty. PREOPERATIVE DIAGNOSIS: Severe right internal carotid artery stenosis. POSTOPERATIVE DIAGNOSIS: Severe right internal carotid artery stenosis. INDICATION FOR OPERATION: Severe right internal carotid artery stenosis. FINDINGS AT OPERATION: Severe right internal carotid artery stenosis. There were no EEG changes with clamping or unclamping of the carotid artery. ESTIMATED BLOOD LOSS: Less than 100 cc. DESCRIPTION OF THE PROCEDURE: After informed consent and adequate preoperative medication evaluation, the patient brought to the operating room, placed on the table in the supine position. After induction of general endotracheal anesthesia and application of appropriate monitoring devices, right neck and chest prepped and draped in sterile field utilizing Betadine scrub, alcohol, and Betadine solution. Betadine-impregnated drape was also used. An oblique incision was made in the skin crease. Dissection carried down to the fascia. Hemostasis maintained with electrocautery. Facial vein was identified and divided. Utilizing sharp dissection, the common carotid, internal and external carotid arteries were dissected free of surrounding structures, protecting the neurological structures. The patient was given a calculated dose of heparin. After 2 minutes, clamps were applied. After 2 minutes, no EEG change. An arteriotomy was made and extended with Benjamin scissors. Artery underwent endarterectomy sharply. Artery underwent extensive debridement and irrigation. Utilizing a vascular patch CorMatrix and running 6-0 Prolene suture, the arteriotomy was closed with a patch angioplasty technique. All maneuvers to remove trapped air were performed. The clamps removed sequentially. There were no EEG changes. The patient was given a calculated dose of protamine to reverse the heparin. Hemostasis was achieved. The #7 Getachew-Davidson drain was left in depths of wound and brought through the base of the neck. Neck was again irrigated. Instrument count and sponge count were correct times 2. Neck was closed in layers utilizing 3-0 Vicryl on the platysma, 5-0 subcuticular Monocryl on the skin. Sterile dressings were applied. The patient tolerated the procedure well and was transferred out to CV ICU in OPERATIVE REPORT [id number] BACK,GLENDA AGUILA stable condition. TRANSINT:[id number] Voice Confirmation ID: [id number] DOCUMENT ID: [id number] HILDA MORROW MD at 1045 CC: [id number] DICTATION DATE: 01/21/19 1011 ACID BATH MIXER: 01/22/19 0346 DIS IN 01/23/19 [place] [id number] [place] [id number]
== END 2019-01-23 13:57 | disposition home or self-care (01) | DRG 39 ==
LOC: D.CVICU 01-21 05:00 → D.SDCHOLD 01-21 05:00 → D.CVICU 01-21 10:05
PROVIDERS: ADMIT Internal Medicine Cardiovascular Disease; ATTEND Internal Medicine Cardiovascular Disease
PROC: 03UK0JZ Supplement Right Internal Carotid Artery with Synthetic Substitute, Open Approach (ICD-10-PCS; 2019-01-21)
PROC: 03CK0ZZ Extirpation of Matter from Right Internal Carotid Artery, Open Approach (ICD-10-PCS; principal; 2019-01-21 07:30)
DX: I65.21 Occlusion and stenosis of right carotid artery (principal); I10 Essential (primary) hypertension; E03.9 Hypothyroidism, unspecified; E78.5 Hyperlipidemia, unspecified; E11.51 Type 2 diabetes mellitus with diabetic peripheral angiopathy without gangrene

== ENCOUNTER → 2019-02-25 09:49 | Outpatient (CLI) | payer MEDICARE, OTHER ==
[2019-01-22 12:19] VITALS: BMI 28.4
[~2019-02-25 09:49] MED LIST changes: +FLUTICASONE PRO16 GM NASAL; +HCTZ25 MG PO; +NORVASC5 MG PO
== END | disposition home or self-care (01) ==
LOC: D.CT 09:49
PROVIDERS: ATTEND Family Medicine
DX: J90 Pleural effusion, not elsewhere classified (principal); R07.9 Chest pain, unspecified

== ENCOUNTER → 2020-01-25 12:16 | Outpatient (CLI) | payer MEDICARE, OTHER ==
[2019-06-03 07:01] VITALS: BMI 25.4
== END | disposition home or self-care (01) ==
LOC: D.US 12:16
PROVIDERS: ATTEND Internal Medicine Cardiovascular Disease
DX: I65.23 Occlusion and stenosis of bilateral carotid arteries (principal)